=== PATIENT | female | born 1945 | race Caucasian/White ===

== ENCOUNTER → 2019-10-03 | Outpatient (CLI) | payer OTHER ==
--- NOTE | 2019-10-07 09:48 | MAM ---
EXAM DESCRIPTION: 3D Screening BILATERAL : Digital Mammography. CLINICAL HISTORY: 74 years Female SCREEN . No complaints. No personal or family history of breast cancer. Menarche age 15. Childbirth age 23. Postmenopausal unknown age. No HRT. Bilateral breast augmentation. Lifetime risk of developing breast cancer (Tyrer-Cuzick model)(%): 4.1. COMPARISON: Baseline study at this facility. No prior reports available. TECHNIQUE: Bilateral CC and MLO projection full-field images, with Morales Implant Displacement digital tomosynthesis mammographic technique. Bilateral 2-D digital full-field images, MLO and CC projections, non-displaced. Bilateral digital 2-D full-field MLO images. Implant displaced CAD not available for tomosynthesis or 2-D images. FINDINGS: The breast parenchymal density pattern is: Heterogeneously dense breast tissue, which may obscure small masses. No skin thickening or nipple retraction. Bilateral solitary microcalcifications. Posterior inferior right breast mole marker. Bilateral axillary lymph nodes. Bilateral subglandular silicone implants. Dense tissue in the posterior lateral aspect of both implants could represent leaking implant material. Bilateral capsules also with calcification. Focal asymmetry retroareolar left breast just lateral to the nipple. No new focal, stellate mass or density, focal asymmetry , and no suspicious microcalcifications right breast. IMPRESSION: BI-RADS CATEGORY: 0 - INCOMPLETE- Need additional imaging evaluation. FOLLOW-UP: Recall for additional imaging: Full-field LM 2-D and tomosynthesis images left breast without and with implant displacement.. Directed left breast ultrasound region of interest. Written communication concerning the IMPRESSION and Follow-up, will be mailed to the patient and referring health care provider. Electronically signed by: Chico Witt MD 10/07/2019 9:45 AM [facility] [employer]
== END ==
LOC: MAMMO 13:00
PROVIDERS: ATTEND Surgery
DX: Z12.31 Encounter for screening mammogram for malignant neoplasm of breast (principal)

== ENCOUNTER → 2019-11-18 | Outpatient (CLI) | payer OTHER ==
--- NOTE | 2019-11-18 16:57 | US ---
EXAM DESCRIPTION: 3D Diagnostic, Left (accession [id number]), Breast,Left (accession [id number]): Ultrasound CLINICAL HISTORY: 74 yearsFemaleLUMP IN LEFT BREAST focal asymmetry left breast. Lifetime risk of developing breast cancer (Tyrer-Cuzick model)(%): 4.1. COMPARISON: Bilateral screening digital breast tomosynthesis 03 October 2019. TECHNIQUE: Left breast LM projection full-field images, digital tomosynthesis technique, Morales implant displacement technique. Left breast 2-D digital full-field images: LM projection without and with Moraels implant displacement. CAD . Transcutaneous scanning of the left breast utilizing davenport-scale and Doppler modes. Scanning performed by the reporting analyst and Dr. Witt. FINDINGS: The breast parenchymal density pattern is: Heterogeneously dense breast tissue, which may obscure small masses. No skin thickening or nipple retraction focal asymmetry again seen in the left retroareolar breast lateral to the posterior nipple line. Less dominant than on the prior studies. Implant intact where seen. No new focal, stellate mass or density, , and no suspicious microcalcifications left breast. Ultrasound: Scanning retroareolar left breast with emphasis on the lateral tissues. Combination of fibroglandular tissues and fatty tissues. Small ducts are noted. These could also represent small cysts. Capsule of the implant is intact where seen. No dominant soft tissue mass, no large calcifications or parenchymal edema. No overlying skin changes. IMPRESSION: Benign exam. BIRAD CATEGORY: 2 BENIGN FINDINGS. RECOMMENDATIONS: FOLLOW UP: Return to routine digital bilateral mammographic screening, one year interval from September 2019. Written communication explaining the IMPRESSION and follow-up, will be mailed to the patient and referring health care provider. The FINDINGS and the FOLLOW-UP plan were reviewed in person with the patient after the examination. According to the [employer], yearly mammograms are recommended starting at age 40 and continuing as long as a woman is in good health. Any breast change noted on a breast self-exam should be reported promptly to the patient's healthcare provider. Breast MRI is recommended for women with an approximately 20-25% or greater lifetime risk of breast cancer, including women with a strong family history of breast or ovarian cancer and women who have been treated for Hodgkin's disease. A negative mammographic report should not delay tissue diagnosis in patients with significant clinical history or physical findings. Extremely dense breast tissue limits the sensitivity of digital mammography. Electronically signed by: Chico Witt MD 11/18/2019 4:55 PM [facility]
== END ==
LOC: MAMMO 13:42
PROVIDERS: ATTEND Emergency Medicine
DX: N63.20 Unspecified lump in the left breast, unspecified quadrant (principal)
CPT/HCPCS: 76641; 77065; G0279